=== PATIENT | female | born 1945 | race Caucasian/White ===

== ENCOUNTER 2016-07-10 11:53 | Emergency (ER) | payer MEDICARE ==
[2016-07-10] MEDS ORDERED: IOPAMIDOL 370 (76%) IV.SOLN 150 ML IV ONE (11:54)
[2016-07-10] MEDS ORDERED: MORPHINE SULFATE 4 MG/ML SYRINGE ONE (14:21)
[2016-07-10 14:42] LABS: ABSOLUTE NEUTROPHIL COUNT 4.4 K/mm3 (1.8-7.7); BASO % 0.4 % (0.2-1.0); EOS # 0.1 (0.0-0.5); EOS % 1.6 % (0.9-2.9); HEMOGLOBIN 13.8 gm/l (12.0-16.0); IMM NEUT% 0.3 % (0-1); LYMPH # 2.5 (1.0-4.8); LYMPH % 33.6 % (15-45); MEAN CELL VOLUME 88.9 fl (81.0-99.0); MEAN CORPUSCULAR HEMOGLOBIN 29.9 pg (27.0-31.0); MEAN CORPUSCULAR HGB CONC 33.7 g/dl (33.0-37.0); MEAN PLATELET VOLUME 10.5 fl (7.4-10.4); MONO # 0.4 (0.0-0.8); MONO % 5.6 % (4-12); NEUT % 58.5 % (43-75); PLATELET COUNT 198 K/mm3 (130-400); RED CELL DISTRIBUTION WIDTH 11.9 % (11.5-14.5)
[2016-07-10 14:53] LABS: ALB/GLOB RATIO 1.7 (>1.0); ALBUMIN 4.1 gm/dL (3.5-5.7); CALCIUM 9.7 mg/dL (8.6-10.3)
--- NOTE | 2016-07-10 16:29 | CT ---
ADDENDUM #1 TECHNICAL ADDENDUM: Three-dimensional volume rendered imaging of the aorta was performed and reviewed separately. ORIGINAL REPORT CHEST ABDOMEN PELVIS CT WITH CONTRAST HISTORY: Sharp right upper back pain. TECHNIQUE: Following the administration of 150 mL Isovue-370 intravenous contrast, contiguous axial images were acquired from the thoracic inlet to the ischial tuberosities. COMPARISON: None. FINDINGS: THORAX Thoracic aorta: Normal caliber. No dissection flap LUNGS: Atelectatic change without airspace consolidation or pleural effusion.. No pneumothorax. BRAD AND MEDIASTINUM: No enlarged lymph nodes. AXILLAE: No grossly enlarged lymph nodes. SUPRACLAVICULAR FOSSAE: No enlarged lymph nodes. ABDOMEN AND PELVIS LIVER AND SPLEEN: No focal lesion detected. ADRENAL GLANDS AND PANCREAS: Grossly unremarkable. KIDNEYS: No focal renal lesion. No collecting system dilatation. Extrarenal pelvis formation on the right. GALLBLADDER: Present. BOWEL: Moderate fecal loading. Limited assessment of the distal colon due to decompression. Normal appendix. No abnormal small bowel dilatation. PELVIC ORGANS: Evaluation limited due to streak artifact from bilateral hip arthroplasty. Distended bladder. FREE FLUID: No gross free fluid identified. ABDOMINOPELVIC LYMPH NODES: No abnormally enlarged lymph nodes identified. 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 No aneurysmal dilatation. Ectasia and tortuosity of the common iliac arteries. No evidence of dissection. OSSEOUS STRUCTURES: Findings of thoracolumbar disc degeneration without vertebral compression deformity. Findings of bilateral shoulder degeneration. Bilateral hip arthroplasty. Moderate canal stenosis at L4-5. Sigmoid curvature of the thoracolumbar spine. IMPRESSION: 1. No evidence of aortic aneurysm or dissection. Tortuous ectatic common iliac arteries. 2. 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 3. Atelectatic changes of the lungs without pneumothorax or pleural effusion. 4. Thoracolumbar spondylosis and bilateral shoulder degeneration. 5. Evidence of bilateral hip arthroplasty. Results were electronically transmitted to the electronic medical record at 07/10/2016 at 1626 hours.
[2016-07-10] MEDS ORDERED: OXYCODONE HCL 5 MG TABLET ONE (17:03)
== END 2016-07-10 17:26 | disposition home or self-care (01) ==
LOC: ED 11:53
DX: R07.9 Chest pain, unspecified (principal); I10 Essential (primary) hypertension
CPT/HCPCS: 83690; 85379; 85025; 80053; 83735; 84484; 36415 ×3; 74174; 71275; 99284 ×2; 96374; 93005; J2270; A9270; Q9967